=== PATIENT | male | born 1955 | race Caucasian/White ===

== ENCOUNTER → 2020-09-06 10:21 | Outpatient (BNVA) | payer MEDICAID, SELFPAY | PROVIDERS: PCP Internal Medicine; Referring Provider Internal Medicine; Visit Provider Urology | DX: N40.1 Benign prostatic hyperplasia with lower urinary tract symptoms (principal); R39.15 Urgency of urination; N28.1 Cyst of kidney, acquired | CPT/HCPCS: 99213; Q3014 ==

== ENCOUNTER → 2021-04-29 09:12 | Outpatient (BNVA) | payer MEDICAID, SELFPAY | PROVIDERS: PCP Internal Medicine; Referring Provider Internal Medicine; Visit Provider Urology | DX: N40.0 Benign prostatic hyperplasia without lower urinary tract symptoms (principal); N28.1 Cyst of kidney, acquired; R39.15 Urgency of urination | CPT/HCPCS: 51798; 99212 ==

== ENCOUNTER 2021-10-17 07:56 | Outpatient (REF) | payer MEDICAID, SELFPAY ==
--- NOTE | ~2021-10-17 | US_ITS ---
EXAMINATION: US RETROPERITONEAL LIMITED (RENAL ONLY) CLINICAL INFORMATION: Cyst of kidney, acquired. COMPARISON: Renal ultrasound 02/21/2020 and 03/02/2019. CT abdomen and pelvis 07/24/2014. TECHNIQUE: Real-time imaging of the kidneys. FINDINGS: RIGHT KIDNEY: 11.5 x 4.7 x 5.2 cm (SAG x AP x TRV). The kidney is normal in size, contour, and echogenicity. Renal cortical thickness is normal. No calculi or focal parenchymal lesions. No hydronephrosis. There is an echogenic area in the midpole cortex left kidney likely juxtacortical scar or defect. LEFT KIDNEY: 13.2 x 5.8 x 4.9 cm (SAG x AP x TRV). The kidney is normal in size, contour, and echogenicity. Renal cortical thickness is normal. No renal calculi or hydronephrosis. There is anechoic cysts with rim calcification lower pole. The cyst measures 1.5 x 0.8 x 1.1 cm. There is an echogenic calcification in the midpole cortex measuring 0.7 x 0 0.7 to 0.9 cm. US/US renal BI IMPRESSION: Complex Bosniak type II cyst lower pole left kidney. Nonobstructive calcification midpole cortex left kidney. Juxtacortical defect mid pole right kidney.
== END 2021-10-17 07:57 | disposition home or self-care (01) ==
LOC: HO.US 07:56
PROVIDERS: PCP Internal Medicine; Visit Provider Urology
DX: N28.1 Cyst of kidney, acquired (principal)
CPT/HCPCS: 76775

== ENCOUNTER → 2021-10-29 13:06 | Outpatient (BNVA) | payer MEDICAID, SELFPAY | PROVIDERS: PCP Internal Medicine; Visit Provider Urology | DX: R39.15 Urgency of urination (principal); N28.1 Cyst of kidney, acquired; N40.0 Benign prostatic hyperplasia without lower urinary tract symptoms; Z13.9 Encounter for screening, unspecified; N40.1 Benign prostatic hyperplasia with lower urinary tract symptoms; N13.8 Other obstructive and reflux uropathy ==

== ENCOUNTER 2022-04-29 08:45 | Outpatient (REF) | payer MEDICARE, MEDICAID, SELFPAY ==
--- NOTE | ~2022-04-29 | XR_ITS ---
EXAMINATION: XR ABDOMEN KUB CLINICAL INDICATION: Calculus of kidney. COMPARISON: None TECHNIQUE: AP view of the abdomen. FINDINGS: There is scattered stool and gas seen throughout the colon without any significant distention. The small bowel loops are normal. There is no radiopaque renal calculi. Scattered tiny phleboliths are seen in the pelvis. No gross bony abnormality is seen. XR/XR KUB IMPRESSION: Mild constipation. No radiopaque renal calculi is seen.
[2022-04-29 11:11] LABS: Prostate Specific Antigen 0.23 ng/mL (<0.05-4.0)
== END 2022-04-29 08:46 | disposition home or self-care (01) ==
LOC: HO.LAB 08:45
PROVIDERS: PCP Internal Medicine; Visit Provider Urology
DX: Z12.5 Encounter for screening for malignant neoplasm of prostate (principal); N20.0 Calculus of kidney; N40.0 Benign prostatic hyperplasia without lower urinary tract symptoms
CPT/HCPCS: 36415; 74018; 84153

== ENCOUNTER → 2022-05-08 13:09 | Outpatient (BNVA) | payer MEDICARE, MEDICAID, SELFPAY | PROVIDERS: PCP Internal Medicine; Visit Provider Urology | DX: N40.0 Benign prostatic hyperplasia without lower urinary tract symptoms (principal); R39.15 Urgency of urination; N28.1 Cyst of kidney, acquired | CPT/HCPCS: 51798; 99212 ==

== ENCOUNTER 2023-04-29 07:52 | Outpatient (REF) | payer MEDICARE, MEDICAID, SELFPAY ==
--- NOTE | ~2023-04-29 | US_ITS ---
EXAMINATION: US RETROPERITONEAL LIMITED (RENAL ONLY) CLINICAL INFORMATION: Cyst of kidney, acquired. COMPARISON: X-ray KUB 04/29/2022. Renal ultrasound 10/17/2021 and 02/21/2020. CT abdomen and pelvis 07/24/2014. TECHNIQUE: Real-time imaging of the kidneys. FINDINGS: RIGHT KIDNEY: 11.7 x 5.5 x 4.6 cm (SAG x AP x TRV). The kidney is normal in size, contour, and echogenicity. Renal cortical thickness is normal. No calculi or focal parenchymal lesions. No hydronephrosis. LEFT KIDNEY: 12.5 x 5.5 x 4.0 cm (SAG x AP x TRV). The kidney is normal in size, contour, and echogenicity. Renal cortical thickness is normal. No calculi or focal parenchymal lesions. No hydronephrosis. The 1.5 cm cyst and the previously seen echogenic calculus are not seen on this exam. Incidental note made of an echogenic liver consistent with hepatic steatosis. US/US renal BI IMPRESSION: 1. Normal-appearing kidneys. 2. Hepatic steatosis.
[2023-04-29 10:43] LABS: PSA,Total (Free>4and<10) 0.29 ng/mL (0.00-4.00)
== END 2023-04-29 07:53 | disposition home or self-care (01) ==
LOC: HO.US 07:52
PROVIDERS: PCP Internal Medicine; Visit Provider Urology
DX: Z12.5 Encounter for screening for malignant neoplasm of prostate (principal); N28.1 Cyst of kidney, acquired; N40.0 Benign prostatic hyperplasia without lower urinary tract symptoms
CPT/HCPCS: 36415; 76775; 84153

== ENCOUNTER → 2023-05-12 13:19 | Outpatient (BNVA) | payer MEDICARE, MEDICAID, SELFPAY | PROVIDERS: PCP Internal Medicine; Visit Provider Urology | DX: N20.0 Calculus of kidney (principal); N40.0 Benign prostatic hyperplasia without lower urinary tract symptoms; R39.15 Urgency of urination | CPT/HCPCS: 51798; 99212 ==

== ENCOUNTER 2024-05-10 13:19 | Outpatient (AMB) | payer BC, SELFPAY ==
--- NOTE | 2024-05-10 13:30 | MHC.OFFVIS ---
Intake Visit Reasons: 1y follow up Intake Note: Patient is Present for PVR/ Urology Med: Oxybutynin Antibiotic Allergy: None Blood Thinner: Warfarin Last PVR: 0 Todays PVR: 0 Allergies codeine [Codeine] Allergy (Mild, Verified 05/10/24 13:41) CHILLS, itching meperidine [From Demerol] Allergy (Mild, Verified 05/10/24 13:41) CHEST PRESSURE cats Allergy (Unknown, Uncoded 05/10/24 13:41) Unknown Medication List - Last Reconciled 05/10/24 by Brandon Crystal MD famotidine 20 mg PO BID fluticasone propionate 50 mcg/actuation 1 spray intranasal DAILY hydrochlorothiazide 25 mg PO DAILY lisinopril 20 mg PO DAILY oxybutynin chloride ER 15 mg PO DAILY 90 days warfarin 2.5 mg PO DAILY warfarin 5 mg PO DAILY HPI Comments Details: Christopher is a pleasant male. He is a patient of Dr. Fernandez. He is seen for the following urologic conditions - BPH - overactive bladder - renal cyst - nephrolithiasis Twelve month follow-up Bladder stable with oxybutynin Low PVR Renal ultrasound no stones but does show fatty liver. Discussion regarding weight loss with carb minimization. Twelve month follow-up renal imaging and PSA BPH Stable Flow is starting to slowly restricted Minimal hesitancy Does have nocturia times 3-4 PSA 03/18 0.3, 05/20 0.2, 05/21 0.3 Nocturia Response to oxybutynin 15 mg Renal cyst Yearly ultrasound Stable Imaging - 10/19 renal ultrasound with 1.9 cm left cyst and 7 mm left stone - 05/20 KUB no evidence of stones - 05/21 renal ultrasound, no stones, fatty liver [facility] Medical History Sleep apnea Urgency incontinence Benign prostatic hyperplasia with lower urinary tract symptoms Elevated blood pressure reading Surgical History History of surgery Social History Alcohol intake: current Alcohol intake frequency: holidays/special occasions only Patient Tobacco Use Status: Never used Tobacco Office Procedures Post Void Residual Post Residual Void Post Void Residual (PVR): 0 [id number] Void Residual by ultrasound Assessment & Plan Assessment & Plan (1) Nephrolithiasis: Code(s): N20.0 - Calculus of kidney Category: Medical (2) BPH without obstruction/lower urinary tract symptoms: Code(s): N40.0 - Benign prostatic hyperplasia without lower urinary tract symptoms Category: Medical Plan Twelve month follow-up renal imaging Orders: Orders AMB Post Void Residual by ultrasound Today R39.15 - Urgency of urination US renal BI 12 Months N20.0 - Calculus of kidney Prostate Specific Antigen 364 Days N40.0 - Benign prostatic hyperplasia without lower urinary tract symptoms Medications: Refilled oxybutynin chloride ER 15 mg PO DAILY 90 days 90 tabs 3RF R39.15 - Urgency of urination Patient Instructions: Imaging studies, laboratory and physical exam results were discussed and reviewed in detail. No major barriers to patient understanding were identified. An opportunity to ask questions regarding the treatment plan was provided. All questions were answered. The patient expressed understanding and agreement with the above treatment plan. The patient is aware they should contact our office by phone for worsening of their current condition or the appearance of new urologic symptoms. Compliance is encouraged with any medications and followup testing that is ordered. It is a privilege to participate in the urologic care of your patient. If you have any questions or concerns regarding treatment for the above conditions, or other urologic issues, please do not hesitate to contact me. The office telephone contact is [phone]. This note is constructed using voice recognition software. While every effort has been made to ensure accuracy wharf tender helper errors may have been included. Yours sincerely, Dr Brandon Crystal MD, TESSIE [facility] - Urology Providers of Expert, Compassionate Care for the Genitourinary System Coding Level of Care Code Est Pt Level 4 (60656) Diagnoses Nephrolithiasis N20.0 BPH without obstruction/lower urinary tract symptoms N40.0 CPT Codes Post Residual Void - PVR CPT Code: 81741-[id number] Void Residual by ultrasound ([id number])
== END 2024-05-10 14:19 | disposition home or self-care (01) ==
PROVIDERS: PCP Internal Medicine; Visit Provider Urology
DX: N20.0 Calculus of kidney (principal); N40.0 Benign prostatic hyperplasia without lower urinary tract symptoms
CPT/HCPCS: 99213

== ENCOUNTER → 2024-05-10 13:19 | Outpatient (BNVA) | payer MEDICARE, SELFPAY | PROVIDERS: PCP Internal Medicine; Visit Provider Urology | DX: N40.0 Benign prostatic hyperplasia without lower urinary tract symptoms (principal); N20.0 Calculus of kidney | CPT/HCPCS: 51798 ==

== ENCOUNTER 2025-04-24 07:53 | Outpatient (REF) | payer MEDICARE, SELFPAY ==
--- NOTE | ~2025-04-24 | US_ITS ---
CLINICAL HISTORY: N20.0 - Calculus of kidney Retroperitoneal ultrasound Comparison: US/SR - US RENAL BI - 04/29/23 08:07 EDT Findings: The kidneys are normal in echotexture bilaterally. No hydronephrosis or nephrolithiasis. The right kidney is normal in size, measuring 11.8cm in length. There is an echogenic lesion measuring 1.0 x 0.9 x 1.0 cm, new. The left kidney is normal in size, measuring 12.3cm in length. Impression: No acute findings. New echogenic lesion in the right kidney measuring 1.0 cm. Scarring is favored. 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 This can be confirmed with cross sectional imaging. This document has been electronically signed by: Linda Parikh MD on 04/24/2025 14:20:32
== END 2025-04-24 07:54 | disposition home or self-care (01) ==
LOC: HO.US 07:53
PROVIDERS: PCP Internal Medicine; Visit Provider Urology
DX: N20.0 Calculus of kidney (principal)
CPT/HCPCS: 76775

== ENCOUNTER → 2025-04-24 07:56 | Outpatient (BNV) | payer MEDICARE, SELFPAY | PROVIDERS: PCP Internal Medicine; Visit Provider Radiology Diagnostic Radiology | DX: D17.71 Benign lipomatous neoplasm of kidney (principal) | CPT/HCPCS: 76775 ==

== ENCOUNTER 2025-05-09 13:13 | Outpatient (AMB) | payer MEDICARE, SELFPAY ==
--- NOTE | 2025-05-09 13:25 | A.OFFVIS_ITS ---
Intake Visit Reasons: 1y/PVR Intake Note: Patient is Present for 1Y/ PVR Urology Med: Oxybutynin Antibiotic Allergy: None Blood Thinner: Warfarin PVR: 0ML'S TODAY'S PVR:0ML'S [employer]erry [employer] Supervisor Required: No Allergies codeine [Codeine] Allergy (Mild, Verified 05/09/25 13:31) CHILLS, itching meperidine [From Demerol] Allergy (Mild, Verified 05/09/25 13:31) CHEST PRESSURE cats Allergy (Unknown, Uncoded 05/09/25 13:31) Unknown HPI Comments Details: Christopher is a pleasant male. He is a patient of Dr. Fernandez. He is seen for the following urologic conditions - BPH - overactive bladder - renal cyst - nephrolithiasis Yearly follow-up Bladder stable with oxybutynin PVR 0 cc Switch to Toviaz 8 mg due to age Lower urinary tract symptoms Stable Flow is starting to slowly restricted Minimal hesitancy Does have nocturia times 3-4 PSA 03/18 0.3, 05/20 0.2, 05/21 0.3 Nocturia with urinary urgency Response to oxybutynin 15 mg Renal cyst Yearly ultrasound Stable Imaging - 10/19 renal ultrasound with 1.9 cm left cyst and 7 mm left stone - 05/20 KUB no evidence of stones - 05/21 renal ultrasound, no stones, fatty liver - 04/22 renal ultrasound small cyst right side PFSH Medical History Sleep apnea Urgency incontinence Benign prostatic hyperplasia with lower urinary tract symptoms Elevated blood pressure reading Surgical History History of surgery Social History Alcohol intake: current Alcohol intake frequency: holidays/special occasions only Patient Tobacco Use Status: Never used Tobacco Review of Systems Const Denies chills and Denies fever(s) Card Reports no additional complaints and Denies syncope Resp Denies cough GI Denies abdominal pain and Denies heartburn Reports as per HPI and Denies change in libido Neuro Denies syncope Psych Denies change in libido Endo Denies change in libido Physical Exam Const General: cooperative, healthy appearing, comfortable and no acute distress Orientation/consciousness: patient oriented x3 HEENT Face and sinus: Yes normal facial exam Mouth: moist mucous membranes Neck Neck: Yes normal visual inspection, Yes full ROM and Yes trachea midline Chest Chest palpation & inspection: normal inspection of the chest Resp Effort & Inspection: normal respiratory effort, able to speak in complete sentences and no respiratory distress GI Inspection: Yes normal to inspection Back/Spine/Pelvis Cervical Spine: normal cervical lordosis Thoracic/Lumbar Spine: thoracic and lumbar spine normal to inspection Skin General skin exam: no rashes or lesions noted Neuro General: patient oriented x3, gait normal, tone normal and moves all extremities Extrem General: Yes normal to inspection and Yes capillary refill normal Assessment & Plan Assessment & Plan (1) BPH without obstruction/lower urinary tract symptoms: Code(s): N40.0 - Benign prostatic hyperplasia without lower urinary tract symptoms Category: Medical (2) Urgency of micturition: Code(s): R39.15 - Urgency of urination Category: Medical Plan Twelve month follow-up renal ultrasound Orders: Orders US renal BI 12 Months N20.0 - Calculus of kidney Medications: New fesoterodine ER 8 mg PO DAILY 90 days 90 tabs 1RF R39.15 - Urgency of urination Discontinued oxybutynin chloride ER Discontinued Reason: Order 15 mg PO DAILY 90 days 90 tabs 3RF R39.15 - Urgency of urination Patient Instructions: This note is constructed using voice recognition software. While every effort has been made to ensure accuracy middle school reading teacher errors may have been included. Imaging studies, laboratory and physical exam results were discussed and reviewed in detail. No major barriers to patient understanding were identified. An opportunity to ask questions regarding the treatment plan was provided. All questions were answered. The patient expressed understanding and agreement with the above treatment plan. The patient is aware they should contact our office by phone for worsening of their current condition or the appearance of new urologic symptoms. Compliance is encouraged with any medications and followup testing that is ordered. It is a privilege to participate in the urologic care of your patient. If you have any questions or concerns regarding treatment for the above conditions, or other urologic issues, please do not hesitate to contact me. The office telephone contact is [phone]. Sincerely, Dr Brandon Crystal MD, TESS[facility] - Urology Compassionate Specialist Care for the Genitourinary System Coding Level of Care Code Est Pt Level 4 (15884) Diagnoses BPH without obstruction/lower urinary tract symptoms N40.0 Urgency of micturition R39.15
== END 2025-05-09 13:53 | disposition home or self-care (01) ==
LOC: HO.HUSH 13:13
PROVIDERS: PCP Internal Medicine; Visit Provider Urology
DX: N40.0 Benign prostatic hyperplasia without lower urinary tract symptoms (principal); R39.15 Urgency of urination
CPT/HCPCS: 99214

== ENCOUNTER → 2025-05-09 13:13 | Outpatient (BNVA) | payer MEDICARE, SELFPAY | PROVIDERS: PCP Internal Medicine; Visit Provider Urology | DX: R39.15 Urgency of urination (principal); N40.0 Benign prostatic hyperplasia without lower urinary tract symptoms | CPT/HCPCS: 99212 ==